=== PATIENT | male | born 1990 | race African-American/Black ===

== ENCOUNTER 2016-10-16 01:22 | Emergency (ER) | payer SELFPAY ==
[~2016-10-16] VITALS: Ht 185.4 cm; Wt 68.0 kg
[2016-10-16 02:11] VITALS: BP 133/80
[2016-10-16] MEDS ORDERED: KETOROLAC 15 MG/ML VIAL. IM ONE (02:15)
--- NOTE | 2016-10-16 02:39 | PHYS DOC ---
Past Medical History Past Medical History: Other Additional Past Medical Histor: HEADACHES Past Surgical History: No Surgical History Alcohol Use: Occasionally Drug Use: None Adult General Chief Complaint Chief Complaint: HEADACHE HPI HPI Patient is a 26 year old male who presents with gradual onset headache to his right jainism that started tonight exactly like prior headaches. Constant, achy pain. Usually takes ibuprofen, but did not have any at home. Denies vision changes, dizziness, numbness, tingling, weakness, fever or chills, nausea or vomiting. Review of Systems Review of Systems Constitutional: Denies fever or chills [] Eyes: Denies change in visual acuity, redness, or eye pain [] HENT: Denies nasal congestion or sore throat [] Respiratory: Denies cough or shortness of breath [] Cardiovascular: No additional information not addressed in HPI [] GI: Denies abdominal pain, nausea, vomiting, bloody stools or diarrhea [] : Denies dysuria or hematuria [] Musculoskeletal: Denies back pain or joint pain [] Integument: Denies rash or skin lesions [] Neurologic: Denies focal weakness or sensory changes [] Endocrine: Denies polyuria or polydipsia [] Current Medications Current Medications Current Medications Medications (Trade) Dose Ordered Sig/Maria Elena Start Time Stop Time Status Last Admin Dose Admin Ketorolac Tromethamine (Toradol) 15 mg 1X ONCE 10/16/16 02:15 10/16/16 02:16 DC 10/16/16 02:13 15 MG Allergies Allergies Allergies Coded Allergies Type Severity Reaction Last Updated Verified acetaminophen Allergy Intermediate 10/16/16 Yes Physical Exam Physical Exam Constitutional: Well developed, well nourished, no acute distress, non-toxic appearance. [] HENT: Normocephalic, atraumatic, bilateral external ears normal, oropharynx moist, no oral exudates, nose normal. [] Eyes: PERRLA, EOMI, conjunctiva normal, no discharge. [] Neck: Normal range of motion, supple. [] Cardiovascular:Heart rate regular rhythm, no murmur [] Lungs & Thorax: Bilateral breath sounds clear to auscultation [] Abdomen: Bowel sounds normal, soft, no tenderness. [] Skin: Warm, dry, no erythema, no rash. [] Back: Normal range of motion. [] Extremities: No tenderness, ROM intact. [] Neurologic: Alert and oriented X 3, normal motor function, normal sensory function, no focal deficits noted, cranial nerves II through XII intact. [] Psychologic: Affect normal, judgement normal, mood normal. [] Current Patient Data Vital Signs Vital Signs Date Time Temp Pulse Resp B/P Pulse Ox O2 Delivery O2 Flow Rate FiO2 10/16/16 01:32 100 78 20 144/92 100 Room Air 100.0 Course & Med Decision Making Course & Med Decision Making He feels better after medication. Discussed symptomatic care for headaches at home. Return precautions given. He understands and agrees with plan. Dragon Disclaimer Dragon Disclaimer This electronic medical record was generated, in whole or in part, using a voice recognition dictation system. Departure Departure Impression: Primary Impression: Headache Disposition: HOME, SELF-CARE Condition: STABLE Referrals: NO PCP (PCP) Patient Instructions: Headache, FAQs Additional Instructions: Take ibuprofen as needed for pain. Follow-up with your primary care doctor. Return for any concerns Problem Qualifiers Primary Impression: Headache Headache type: unspecified Headache chronicity pattern: episodic headache Intractability: not intractable Qualified Code: R51 - Headache Jerman LOZANO MD Oct 16, 2016 02:38
== END 2016-10-16 03:29 | disposition home or self-care (01) ==
LOC: ER 01:22
DX: R51 Headache (principal); Z88.6 Allergy status to analgesic agent
CPT/HCPCS: 96372; 99283; J1885